=== PATIENT | female | born 1940 ===

== ENCOUNTER 2017-05-24 01:36 | Emergency (ER) | payer MEDICARE ==
--- NOTE | 2017-05-24 02:59 | ED PDOC ---
HPI: General Adult Time Seen by Provider: 05/24/17 02:28 Additional Complaint(s): 77yo F in ED for eval of elevated blood suagr wtih neck and leg pain today. BS sugar was >400. Pt took metofmrim again and bs improved to 300-400 and now in ER <300. Pt take 1g of metformin daily. pt without dizziness nasuea or vomiting. Past Medical History Reviewed: Historical Data, Nursing Documentation, Vital Signs - Medical History PMH: No Chronic Diseases - Family History Family History: States: No Known Family Hx - Allergies Allergies/Adverse Reactions: Allergies Allergy/AdvReac Type Severity Reaction Status Date / Time Unobtainable Allergy Verified 05/24/17 02:57 Review of Systems ROS Statement: Except As Marked, All Systems Reviewed And Found Negative Cardiovascular: Negative for: Chest Pain Respiratory: Negative for: Cough Genitourinary Female: Negative for: Incontinence Physical Exam - Reviewed Nursing Documentation Reviewed: Yes Vital Signs Reviewed: Yes - Physical Exam Appears: Positive for: Well, Non-toxic, No Acute Distress Skin: Positive for: Normal Color, Warm, DRY Eye Exam: Positive for: EOMI, Normal appearance, PERRL ENT: Positive for: Normal ENT Inspection Cardiovascular/Chest: Positive for: Regular Rate, Rhythm Respiratory: Positive for: CNT, Normal Breath Sounds Gastrointestinal/Abdominal: Positive for: Normal Exam, Bowel Sounds, Soft Back: Positive for: Normal Inspection Extremity: Positive for: Normal ROM Neurologic/Psych: Positive for: Alert, Oriented Medical Decision Making Medical Decision Making: BS less than 300 in ER after 2nd ER fs pt feels well and wants to go homewith pmd f.u Disposition - Clinical Impression Clinical Impression: Elevated blood sugar - Patient ED Disposition Is Patient to be Admitted: No Counseled Patient/Family Regarding: Studies Performed, Diagnosis, Need For Followup - Disposition Referrals: Remi Joshi MD [Primary Care Provider] - [facility] [Outside] Disposition: Routine/Home Disposition Time: 02:57 Condition: STABLE Instructions: How to Check Your Blood Sugar (ED)
[2017-05-24 03:04] VITALS: BP 147/63; PULSE 76; RESP 18; TEMP 97.8; O2SAT 99
== END 2017-05-24 03:20 | disposition home or self-care (01) ==
LOC: H.ER 01:36
DX: E11.65 Type 2 diabetes mellitus with hyperglycemia (principal)

== ENCOUNTER 2018-11-07 20:57 | Emergency (ER) | payer MEDICARE ==
[2018-11-07 21:03] VITALS: O2SAT 98
[2018-11-07] MEDS ORDERED: Sodium Chloride 0.9% 1,000 ML IV STA (21:31)
[2018-11-07 22:05] LABS: VENOUS BLOOD GAS BASE EXCESS 1.9 mmol/L (0.0-2.0); VENOUS BLOOD GAS PCO2 50 mmHg (40-60); VENOUS BLOOD GAS PO2 26 mm/Hg (30-55); VENOUS BLOOD PH 7.36 (7.32-7.43)
--- NOTE | 2018-11-07 22:10 | ED PDOC ---
Hyperglycemia/Hypoglycemia Time Seen by Provider: 11/07/18 21:12 Chief Complaint (Nursing): High Blood Sugar Chief Complaint (Provider): high blood sugar History Per: Patient History/Exam Limitations: no limitations Onset/Duration Of Symptoms: Days (2), Gradual, Persistent : The patient does not have any of the infectious symptoms listed except for those marked. Additional Complaint(s): pt reports that since switching from metformin to januvia her glucose has been less controlled. today it was in 400s which is why she presents to ER. she was switched because she was having a lot of diarrhea from metformin. she reports excessive thirst and urination. PMD Dr Tyler Past Medical History Reviewed: Historical Data, Nursing Documentation, Vital Signs Vital Signs: Last Vital Signs Temp 99.1 F 11/07/18 21:03 Pulse 90 11/07/18 21:03 Resp 16 11/07/18 21:03 BP 126/70 11/07/18 21:03 Pulse Ox 98 11/07/18 21:03 Primary Care Provider: Doctor,Conversion - Medical History PMH: CAD, Diabetes, HTN - Family History Family History: States: Hypertension - Social History Current smoker - smoking cessation education provided: No - Allergies Allergies/Adverse Reactions: Allergies Allergy/AdvReac Type Severity Reaction Status Date / Time No Known Allergies Allergy Verified 11/07/18 21:06 Review of Systems ROS Statement: Except As Marked, All Systems Reviewed And Found Negative (and as per HPI) Gastrointestinal: Positive for: Other (thirst) Genitourinary Female: Positive for: Frequency Physical Exam - Reviewed Nursing Documentation Reviewed: Yes Vital Signs Reviewed: Yes - Physical Exam Appears: Positive for: No Acute Distress Head Exam: Positive for: ATRAUMATIC, NORMOCEPHALIC Skin: Positive for: Warm, Dry Eye Exam: Positive for: EOMI, PERRL ENT: Negative for: Pharyngeal Erythema, Tonsillar Exudate Neck: Positive for: Painless ROM, Supple Cardiovascular/Chest: Positive for: Regular Rate, Rhythm. Negative for: Murmur Respiratory: Positive for: Normal Breath Sounds. Negative for: Respiratory Distress Gastrointestinal/Abdominal: Positive for: Soft. Negative for: Tenderness Back: Positive for: Normal Inspection. Negative for: Decreased ROM Extremity: Positive for: Normal ROM. Negative for: Deformity Lymphatic: Negative for: Adenopathy Neurological/Psych: Positive for: Awake, Alert. Negative for: Motor/Sensory Deficits - Laboratory Results Result Diagrams: 11/07/18 22:21 11/07/18 22:21 - ECG O2 Sat by Pulse Oximetry: 98 - Progress ED Course And Treament: Labs demonstrate normal anion gap, no acidosis. Re-evaluation Time: 23:25 Condition: Improved (glucose improved with ER management) Disposition - Clinical Impression Clinical Impression: Hyperglycemia Counseled Patient/Family Regarding: Studies Performed, Diagnosis, Need For Followup - Disposition Referrals: Remi Tyler MD [Family Provider] - Disposition: Routine/Home Disposition Time: 23:25 Condition: IMPROVED Instructions: Hyperglycemia, Adult (DC), Diabetes and Diet Print Language: ROMANSH
[2018-11-07] MEDS ORDERED: Insulin Regular 100 units/ml IVP STA (22:11)
[2018-11-07 22:27] LABS: BASO % 0.8 % (0.0-2.0); EOS # 0.2 K/uL (0.0-0.7); EOS % 2.5 % (0.0-4.0); HEMOGLOBIN 11.7 g/dL (12.0-16.0); LYMPH # 1.8 K/uL (1.0-4.3); LYMPH % 28.8 % (20.0-40.0); MEAN CELL VOLUME 89.3 fl (81.0-99.0); MEAN CORPUSCULAR HEMOGLOBIN 31.4 pg (27.0-31.0); MEAN CORPUSCULAR HGB CONC 35.1 g/dL (33.0-37.0); MEAN PLATELET VOLUME 9.5 fl (7.2-11.7); MONO # 0.3 K/uL (0.0-0.8); MONO % 5.2 % (0.0-10.0); NEUT # 3.8 K/uL (1.8-7.0); NEUT % 62.7 % (50.0-75.0); NRBC % 0.1 % (0.0-0.0); RBC 3.73 Mil/uL (3.80-5.20); RED CELL DISTRIBUTION WIDTH 13.2 % (11.5-14.5); WHITE BLOOD COUNT 6.1 K/uL (4.8-10.8)
[2018-11-07 22:35] LABS: ALB/GLOB RATIO 1.4 (1.0-2.1); ALBUMIN 4.1 g/dL (3.5-5.0); CALCIUM 9.2 mg/dL (8.4-10.2)
[2018-11-07] MEDS ORDERED: Insulin Regular 100 units/ml ONE (22:35)
[2018-11-08 01:22] VITALS: BP 122/84; PULSE 81; RESP 17; TEMP 98.7
== END 2018-11-07 23:44 | disposition home or self-care (01) ==
LOC: H.ER 20:57
DX: E11.65 Type 2 diabetes mellitus with hyperglycemia (principal); I10 Essential (primary) hypertension; I25.10 Atherosclerotic heart disease of native coronary artery without angina pectoris
CPT/HCPCS: 80053; 82803; 82948; 83735; 84100; 85025; 96374; 99283; J7030